=== PATIENT | female | born 1995 | race Caucasian/White ===

== ENCOUNTER 2017-03-28 11:57 | Emergency (ER) | payer OTHER ==
[~2017-03-28] VITALS: Ht 154.9 cm; Wt 74.0 kg
[2017-03-28 12:13] VITALS: BP 115/73
== END 2017-03-28 13:06 | disposition home or self-care (01) ==
LOC: ER 12:59
DX: H66.91 Otitis media, unspecified, right ear (principal); Z90.49 Acquired absence of other specified parts of digestive tract
CPT/HCPCS: 99283